=== PATIENT | female | born 1965 | race Caucasian/White ===

== ENCOUNTER 2017-02-09 10:36 | Inpatient (IN) | payer OTHER ==
[2017-02-09 11:49] VITALS: BMI 23.8
--- NOTE | 2017-02-09 13:43 | HP ---
CIWA Score - CIWA Score Nausea/Vomitin Muscle Tremors: 2 Anxiety: 4-Mod. Anxious/Guarded Agitation: 4-Moderately Restless Paroxysmal Sweats: 2 Orientation: 0-Oriented Tacttile Disturbances: 0-None Auditory Disturbances: 2-Mild Harshness/Frighten Visual Disturbances: 2-Mild Sensitivity Headache: 3-Moderate CIWA-Ar Total Score: 21 Admission ROS S - HPI Chief Complaint: "I want my life back. I am tired of being sick and suffering." Pt. is here to Detox from Alcohol. Allergies/Adverse Reactions: Allergies Allergy/AdvReac Type Severity Reaction Status Date / Time No Known Allergies Allergy Verified 02/09/17 12:04 History of Present Illness: Pt. is a 51 YO female here to Detox from Alcohol. Pt. had a previous Detox admission at [facility] in 2009. Pt. has had several other Detox admissions at other locations since that time; most recent: [facility]: 11/2016. Exam Limitations: No Limitations - Ebola screening Have you traveled outside of the country in the last 21 days: No Have you had contact with anyone from an Ebola affected area: No Have you been sick,other than usual withdrawal symptoms: No Do you have a fever: No - Review of Systems Constitutional: Chills, Diaphoresis, Fever, Loss of Appetite, Malaise, Night Sweats, Changes in sleep, Unintentional Wgt. Loss (Lost approx. 15 lbs. over last 3 months.) EENT: reports: Blurred Vision, Hearing Loss, Nose Congestion, Sinus Pressure, Throat Pain (Abnormal Growth in throat as per MD. Patient reprots that she is okay to consume a REGULAR Diet.) Respiratory: reports: SOB with Exertion, Productive cough Cardiac: reports: Palpitations GI: reports: Constipated, Nausea, Poor Appetite, Indigestion (Heartburn.) : reports: Other (MacrRecently diagnosed with UTI by [facility]; currently on antibiotic (Macrobid).) Musculoskeletal: reports: Back Pain, Muscle Pain, Neck Pain Integumentary: reports: No Symptoms Reported Neuro: reports: Headache, Tremors Endocrine: reports: No Symptoms Reported Hematology: reports: Easy Bruising Psychiatric: reports: Judgement Intact, Mood/Affect Appropiate, Orientated x3, Agitated, Anxious, Depressed (Took Paxil and Zoloft in past; no meds. currently. ) Other Systems: Reviewed and Negative Patient History - Patient Medical History Hx Anemia: No Hx Asthma: Yes (On meds.) Hx Chronic Obstructive Pulmonary Disease (COPD): Yes (Chronic Bronchitis; On meds.) Hx Cancer: No (Growth in throat; currently undergoing evaluation; uncertain if Cancer yet.) Hx Cardiac Disorders: No Hx Hypertension: No Hx Hypercholesterolemia: No Hx Pacemaker: No HX Cerebrovascular Accident: No Hx Seizures: No Hx Dementia: No Hx Diabetes: No Hx Gastrointestinal Disorders: Yes (Pt has GERD.) Hx Liver Disease: No Hx Genitourinary Disorders: Yes (UTI; currently receiving antibiotic.) Hx Sexually Transmitted Disorders: No Hx Renal Disease (ESRD): Yes (Stones/Infection in past.) Hx Thyroid Disease: No Hx Human Immunodeficiency Virus (HIV): No (Last Tested: 12/2016: NEGATIVE.) Hx Hepatitis C: Yes (Postive Antibody; Negative Viral Load when checked couple of years ago.) Hx Depression: Yes (Meds. in past, none currently.) Hx Suicide Attempt: No (PATIENT DENIES CURRENT SI / HI.) Hx Bipolar Disorder: Yes (Latuda in past; not currently.) Hx Schizophrenia: No Other Medical History: Tourette's Syndrome (Diagnosed during childhood). - Patient Surgical History Past Surgical History: Yes Hx Neurologic Surgery: No Hx Cataract Extraction: No Hx Cardiac Surgery: No Hx Lung Surgery: No Hx Breast Surgery: No Hx Breast Biopsy: No Hx Abdominal Surgery: No Hx Appendectomy: No Hx Cholecystectomy: No Hx Genitourinary Surgery: No Hx Section: Yes (x 2 (1990, 1998).) Hx Orthopedic Surgery: No Hx Hysterectomy: Yes (Partial hysterectomy in 1998.) Anesthesia Reaction: No - PPD History Previous Implant?: Yes Documented Results: Negative w/o proof Implanted On Prior [facility] Admission?: No PPD to be Administered?: Yes - Reproductive History Patient is a Female of Child Bearing Age (11 -55 yrs old): Yes LMP comment: LMP: 1998. Patient : No - Smoking Cessation Smoking history: Current every day smoker Have you smoked in the past 12 months: Yes Aproximately how many cigarettes per day: 3 Cigars Per Day: 0 Hx Chewing Tobacco Use: No Initiated information on smoking cessation: Yes 'Breaking Loose' booklet given: 02/09/17 (GIVEN ON UNIT.) - Substance & Tx. History Hx Alcohol Use: Yes Hx Substance Use: Yes Substance Use Type: Alcohol, Cocaine Hx Substance Use Treatment: Yes (Previous Detox admissions; Most recent: [facility], 11/17.) - Substances Abused Alcohol Route: Oral Frequency: Daily Amount used: 1 PINT VODKA Age of first use: 26 Date of Last Use: 02/08/17 Crack Route: Smoking Frequency: Daily Amount used: $100 Age of first use: 26 Date of Last Use: 02/07/17 Family Disease History - Family Disease History Family Disease History: Diabetes: Grandparent (Asthma, HTN), Father (Asthma, HTN ; .), Mother (Asthma, HTN; Psych Disorder.), Heart Disease: Grandparent , Father, Mother, Brother (Asthma; Aneurysm), CA: Son (Leukemia; ADHD.), Respiratory: Grandparent, Father, Mother, Brother, Other: Mother, Son, Daughter (ADHD.) Admission Physical Exam [facility] - Vital Signs Vital Signs: Vital Signs - 24 hr 02/09/17 11:45 Temperature 97.8 F Pulse Rate 62 Respiratory 18 Rate Blood Pressure 106/54 - Physical General Appearance: Yes: Nourished, Appropriately Dressed, Mild Distress, Tremorous, Irritable HEENTM: Yes: Hearing grossly Normal, Normocephalic, Normal Voice, ALISON, Pharynx Normal Respiratory: Yes: Chest Non-Tender, Lungs Clear, No Respiratory Distress, No Accessory Muscle Use Neck: Yes: No masses,lesions,Nodules, Supple, Trachea in good position Breast: Yes: Breast Exam Deferred Cardiology: Yes: Regular Rhythm, Regular Rate, S1, S2 Abdominal: Yes: Normal Bowel Sounds, Non Tender, Flat, Soft Genitourinary: Yes: Other (Currently on Antibiotic (Macrobid) for UTI.) Back: Yes: Decreased Range of Motion Musculoskeletal: Yes: Gait Steady, Back pain, Muscle Pain Extremities: Yes: Normal Range of Motion, Non-Tender, Tremors Neurological: Yes: Fully Oriented, Alert, Normal Mood/Affect, Normal Response Integumentary: Yes: Normal Color, Dry, Warm Lymphatic: Yes: Within Normal Limits - Diagnostic (1) Alcohol dependence with uncomplicated withdrawal Current Visit: Yes Status: Acute (2) Cocaine dependence, uncomplicated Current Visit: Yes Status: Acute (3) Nicotine dependence Current Visit: Yes Status: Chronic Qualifiers: Nicotine product type: cigarettes Substance use status: uncomplicated Qualified Code(s): F17.210 - Nicotine dependence, cigarettes, uncomplicated (4) History of 2 sections Current Visit: No Status: Resolved (5) Tourettes syndrome Current Visit: Yes Status: Chronic (6) UTI (urinary tract infection) Current Visit: Yes Status: Acute Qualifiers: Urinary tract infection type: site unspecified Hematuria presence: without hematuria Qualified Code(s): N39.0 - Urinary tract infection, site not specified (7) Asthma Current Visit: Yes Status: Chronic Qualifiers: Asthma severity: mild Asthma persistence: intermittent Asthma complication type: uncomplicated Qualified Code(s): J45.20 - Mild intermittent asthma, uncomplicated (8) COPD with chronic bronchitis Current Visit: Yes Status: Chronic (9) History of bipolar disorder Current Visit: Yes Status: Chronic (10) History of depression Current Visit: Yes Status: Chronic (11) GERD (gastroesophageal reflux disease) Current Visit: Yes Status: Chronic Qualifiers: Esophagitis presence: esophagitis presence not specified Qualified Code(s) : K21.9 - Gastro-esophageal reflux disease without esophagitis Cleared for Admission [facility] - Detox or Rehab S Level of Care: Medically Managed Detox Regimen/Protocol: Librium S Breath Alcohol Content Breath Alcohol Content: 0 Urine Pregancy Test - Result Urine Test Results: Negative- NO Line Present Urine Drug Screen - Results Drug Screen Negative: No Urine Drug Screen Results: CEDRIC-Cocaine
[2017-02-09] MEDS ORDERED: ACETAMINOPHEN 325 MG TABLET (FP) PO PRN (14:39)
[2017-02-09] MEDS ORDERED: LOPERAMIDE HCL 2 MG CAPSULE PO PRN (14:39)
[2017-02-09] MEDS ORDERED: MAGNESIUM CITRATE 300 ML BOTTLE PO PRN (14:39)
[2017-02-09] MEDS ORDERED: MAG HYDROX/AL HYDROX/SIMETH 30 ML UNIT-DOSE CUP PO PRN (14:39)
[2017-02-09] MEDS ORDERED: guaiFENesin/D-METHORPHAN HB 10 ML UNIT-DOSE CUPS PO PRN (14:39)
[2017-02-09] MEDS ORDERED: IBUPROFEN 400 MG TABLET (FP) PO PRN (14:39)
[2017-02-09] MEDS ORDERED: NICOTINE POLACRILEX 2 MG GUM BUC PRN (14:39)
[2017-02-09] MEDS ORDERED: chlordiazePOXIDE HCL 25 MG CAPSULE PO PRN (14:39)
[2017-02-09] MEDS ORDERED: P-EPHED 60MG/TRIPROLIDI 2.5MG TABLET PO PRN (14:39)
[2017-02-09] MEDS ORDERED: MAGNESIUM HYDROX 2400MG/30ML ORAL SUSPENSION 30 ML CUP PO PRN (14:39)
[2017-02-09] MEDS ORDERED: MENTHOL/PHENOL 1 EACH UD MM PRN (14:39)
[2017-02-09] MEDS ORDERED: hydrOXYzine PAMOATE 50 MG CAPSULE (FP) PO PRN (14:39)
[2017-02-09] MEDS ORDERED: chlordiazePOXIDE HCL 25 MG CAPSULE PO ONE (15:53)
[2017-02-09] MEDS ORDERED: MECLIZINE HCL 12.5 MG TABLET PO PRN (16:02)
[2017-02-09] MEDS: NICOTINE 14 MG/24 HOURS TOPICAL PATCH TD SCH (16:03)
[2017-02-09 16:43] LABS: MCH 31.5 pg (25.7-33.7); MCHC 33.3 g/dl (32.0-36.0); MEAN CELL VOLUME 94.5 fl (80-96); MEAN PLT VOLUME 9.6 fl (7.5-11.1); PLATELET COUNT 272 K/MM3 (134-434); RDW 13.6 % (11.6-15.6); WHITE BLOOD COUNT 5.4 K/mm3 (4.0-10.0)
[2017-02-09 16:59] LABS: ALBUMIN 3.4 g/dl (3.4-5.0); ANION GAP 9 (8-16); CALCIUM 8.6 mg/dL (8.5-10.1); CO2 27 mmol/L (21-32); GLUCOSE,RANDOM 79 mg/dL (74-106); SGOT/AST 11 U/L (15-37); SGPT/ALT 15 U/L (12-78)
[2017-02-09 17:01] LABS: ALK PHOS 88 U/L (45-117); BILIRUBIN,TOTAL 0.1 mg/dL (0.2-1.0); CREATININE 0.7 mg/dL (0.55-1.02); TOT PROT 6.3 g/dl (6.4-8.2)
[2017-02-09] MEDS: chlordiazePOXIDE HCL 25 MG CAPSULE PO SCH ×2 (17:33→22:56)
[2017-02-09] MEDS: PREDNISONE PO SCH (18:10)
[2017-02-09 22:10] LABS: URINE APPEARANCE SLCLOUDY; URINE BILIRUBIN NEGATIVE (NEGATIVE); URINE BLOOD NEGATIVE (NEGATIVE); URINE COLOR YELLOW; URINE GLUCOSE (UA) NEGATIVE (NEGATIVE); URINE KETONE NEGATIVE (NEGATIVE); URINE NITRITE NEGATIVE (NEGATIVE); URINE PROTEIN NEGATIVE (NEGATIVE); URINE UROBILINOGEN NEGATIVE mg/dL (0.2-1.0)
[2017-02-09] MEDS: PATIENT'S OWN MEDICATION (NON-FORMULARY) (Nitrofurantoin Monohyd/M-Cryst [Nitrofurantoin M PO SCH (22:56)
[2017-02-09] MEDS: THIAMINE HCL 100 MG TABLET (FP) PO SCH (22:56)
[2017-02-09] MEDS: MONTELUKAST NA 10 MG TABLET PO SCH (22:56)
[2017-02-10] MEDS: chlordiazePOXIDE HCL 25 MG CAPSULE PO SCH ×4 (05:27→22:30)
[2017-02-10] MEDS ORDERED: SODIUM PHOSPHATE/NA BIPHOS 133 ML ENEMA PR ONE (09:19)
[2017-02-10 10:30] LABS: HIV 1 & 2 AB NEGATIVE; HIV 1 AGp24 NEGATIVE
[2017-02-10 10:59] LABS: URINE LEUK ESTERASE Negative (NEGATIVE)
[2017-02-10] MEDS: PATIENT'S OWN MEDICATION (NON-FORMULARY) (Nitrofurantoin Monohyd/M-Cryst [Nitrofurantoin M PO SCH ×2 (11:01→22:30)
[2017-02-10] MEDS: NICOTINE 14 MG/24 HOURS TOPICAL PATCH TD SCH (11:01)
[2017-02-10] MEDS: PRENATAL VITAMINS W/ FOLIC ACID TABLET (FP) PO SCH (11:01)
[2017-02-10] MEDS: PREDNISONE PO SCH (11:01)
[2017-02-10] MEDS: PANTOPRAZOLE 40 MG TABLET (FP) PO SCH (11:01)
--- NOTE | 2017-02-10 11:05 | PN ---
S CIWA - CIWA Score Nausea/Vomitin-No Nausea/No Vomiting Muscle Tremors: 4-Moderate,w/Arms Extend Anxiety: 3 Agitation: 3 Paroxysmal Sweats: 3 Orientation: 0-Oriented Tacttile Disturbances: 0-None Auditory Disturbances: 0-None Visual Disturbances: 0-None Headache: 1-Very Mild CIWA-Ar Total Score: 14 [facility] Progress Note (SOAP) Subjective: constipation sweats shakes agitation anxiety body aches irritable Objective: 02/10/17 11:04 Vital Signs Temperature 97.1 F L 02/10/17 10:27 Pulse Rate 81 02/10/17 10:27 Respiratory Rate 18 02/10/17 10:27 Blood Pressure 99/59 02/10/17 10:27 O2 Sat by Pulse Oximetry (%) Laboratory Tests 02/09/17 02/09/17 02/09/17 13:05 15:00 15:00 WBC 5.4 RBC 4.07 Hgb 12.8 Hct 38.5 MCV 94.5 MCH 31.5 MCHC 33.3 RDW 13.6 Plt Count 272 MPV 9.6 Sodium 139 Potassium 4.5 Chloride 103 Carbon Dioxide 27 Anion Gap 9 BUN 14 Creatinine 0.7 Creat Clearance w eGFR > 60 Random Glucose 79 Calcium 8.6 Total Bilirubin 0.1 L AST 11 L ALT 15 Alkaline Phosphatase 88 Total Protein 6.3 L Albumin 3.4 Urine Color Urine Appearance Urine pH Ur Specific [place] Urine Protein Urine Glucose (UA) Urine Ketones Urine Blood Urine Nitrite Urine Bilirubin Urine Urobilinogen Ur Leukocyte Esterase HIV 1&2 Antibody Screen Negative HIV P24 Antigen Negative 02/09/17 21:50 WBC RBC Hgb Hct MCV MCH MCHC RDW Plt Count MPV Sodium Potassium Chloride Carbon Dioxide Anion Gap BUN Creatinine Creat Clearance w eGFR Random Glucose Calcium Total Bilirubin AST ALT Alkaline Phosphatase Total Protein Albumin Urine Color Yellow Urine Appearance Slcloudy Urine pH 6.0 Ur Specific [place] 1.013 Urine Protein Negative Urine Glucose (UA) Negative Urine Ketones Negative Urine Blood Negative Urine Nitrite Negative Urine Bilirubin Negative Urine Urobilinogen Negative Ur Leukocyte Esterase Negative HIV 1&2 Antibody Screen HIV P24 Antigen aaox3 ambulating no acute distress Assessment: 02/10/17 11:04 withdrawal sx Plan: fleets enema continue detox dulcox increase fluids
--- NOTE | 2017-02-10 12:00 | EKG ---
Test Reason : Blood Pressure : / mmHG Vent. Rate : 065 BPM Atrial Rate : 065 BPM P-R Int : 130 ms QRS Dur : 084 ms QT Int : 400 ms P-R-T Axes : 053 063 060 degrees QTc Int : 416 ms NORMAL SINUS RHYTHM NORMAL ECG NO PREVIOUS ECGS AVAILABLE Confirmed by MILEY CHENEY MD ([id number]) on 02/10/2017 12:00:00 PM Referred By: JULISSA ROGERS Confirmed By:MILEY CHENEY MD
[2017-02-10] MEDS: BISACODYL 5 MG TABLET.DR (FP) PO SCH (12:01)
--- NOTE | 2017-02-10 15:20 | CONSULT ---
[facility] Psychiatric Consult - Data Date of interview: 02/10/17 Admission source: [facility] Identifying data: Readmission to [facility] for this 51 y/o female seeking detox treatment on for alcohol and cocaine dependence.Patient is single,a mother of four,domiciled ([place] setting),unemployed and supported on SSI benefits. Substance Abuse History: Patient admits to active use of cocaine and alcohol as described in the following [facility] report. Smoking history: Current every day smoker. Have you smoked in the past 12 months: Yes. Aproximately how many cigarettes per day: 3. Cigars Per Day: 0. Hx Chewing Tobacco Use: No. Initiated information on smoking cessation: Yes. 'Breaking Loose' booklet given : 02/09/17 (GIVEN ON UNIT.). - Substance & Tx. History. Hx Alcohol Use: Yes. Hx Substance Use: Yes. Substance Use Type: Alcohol, Cocaine. Hx Substance Use Treatment: Yes (Previous Detox admissions; Most recent: [facility] .). - Substances Abused. Alcohol. Route: Oral. Frequency: Daily. Amount used: 1 PINT VODKA. Age of first use: 26. Date of Last Use: 02/08/17. Crack. Route: Smoking. Frequency: Daily. Amount used: $100. Age of first use: 26. Date of Last Use: 02/07/17 Medical History: COPD,bronchial asthma,GERD,hepatitis C,nephrolithiasis and history of partial hysterectomy (1998). Psychiatric History: No history of psychiatric hospitalizations (only CPEP visits at [facility])Diagnosed with Bipolar Disorder and Tourette's syndrome.Followed at [facility] in the [place].Patient reports past maintenance treatment with topiramate,zoloft,paxil,latuda and vistaril.Admits to non-adherence to medications.Ms Lang denies history of suicide attempts. Physical/Sexual Abuse/Trauma History: Patient denies. Additional Comment: Urine Drug Screen Results: CEDRIC-Cocaine.Noted. Mental Status Exam - Mental Status Exam Alert and Oriented to: Time, Place, Person Cognitive Function: Good Patient Appearance: Well Groomed (petite,thin habitus) Mood: Hopeful, Euthymic Affect: Appropriate, Normal Range Patient Behavior: Appropriate, Cooperative Speech Pattern: Clear, Appropriate Voice Loudness: Normal Thought Process: Intact, Goal Oriented Thought Disorder: Not Present Hallucinations: Denies Suicidal Ideation: Denies Homicidal Ideation: Denies Insight/Judgement: Poor Sleep: Poorly, Difficulty falling asleep (wants ambien) Appetite: Good Muscle strength/Tone: Normal Gait/Station: Normal Psychiatric Findings - Problem List ([place] 1, 2,3) (1) Alcohol dependence with uncomplicated withdrawal Current Visit: Yes Status: Acute (2) Cocaine dependence, uncomplicated Current Visit: Yes Status: Acute (3) Nicotine dependence Current Visit: Yes Status: Acute Qualifiers: Nicotine product type: cigarettes Substance use status: uncomplicated Qualified Code(s): F17.210 - Nicotine dependence, cigarettes, uncomplicated (4) Substance induced mood disorder Current Visit: Yes Status: Acute (5) History of bipolar disorder Current Visit: No Status: Chronic (6) Tourettes syndrome Current Visit: Yes Status: Chronic - Initial Treatment Plan Initial Treatment Plan: Psychoeducation.Sleep hygiene.Detoxification in progress.Discussed option of topiramate,latuda and other mood stabilizers : patient declined.Consents only to ambien (with the exception of detoxification protocol).Informed of potential risks attached to refusal of medications.Ambien 10 mg po hs prn.Made aware of risk of parasomnias.Observation.
[2017-02-10] MEDS: ZOLPIDEM TARTRATE 10 MG TABLET (PARK CARE ONLY) PO PRN (22:30)
[2017-02-10] MEDS: THIAMINE HCL 100 MG TABLET (FP) PO SCH (22:31)
[2017-02-10] MEDS: MONTELUKAST NA 10 MG TABLET PO SCH (22:31)
[2017-02-11] MEDS: chlordiazePOXIDE HCL 25 MG CAPSULE PO SCH ×2 (05:54→10:52)
[2017-02-11] MEDS: PRENATAL VITAMINS W/ FOLIC ACID TABLET (FP) PO SCH (10:50)
[2017-02-11] MEDS: BISACODYL 5 MG TABLET.DR (FP) PO SCH (10:50)
[2017-02-11] MEDS: PREDNISONE PO SCH (10:50)
[2017-02-11] MEDS: PATIENT'S OWN MEDICATION (NON-FORMULARY) (Nitrofurantoin Monohyd/M-Cryst [Nitrofurantoin M PO SCH ×2 (10:50→22:58)
[2017-02-11] MEDS: PANTOPRAZOLE 40 MG TABLET (FP) PO SCH (10:50)
[2017-02-11] MEDS: NICOTINE 14 MG/24 HOURS TOPICAL PATCH TD SCH (10:51)
--- NOTE | 2017-02-11 14:29 | PN ---
S CIWA - CIWA Score Nausea/Vomitin Muscle Tremors: 3 Anxiety: 3 Agitation: 3 Paroxysmal Sweats: 1-Minimal Palms Moist Orientation: 0-Oriented Tacttile Disturbances: 1-Very Mild Itch/Numbness Auditory Disturbances: 1-Very Mild Visual Disturbances: 0-None Headache: 2-Mild CIWA-Ar Total Score: 17 [facility] Progress Note (SOAP) Subjective: alert,irritable,anxious,interrupted sleep,tremor Objective: 02/11/17 14:28 Vital Signs Temperature 96.3 F L 02/11/17 11:22 Pulse Rate 76 02/11/17 11:22 Respiratory Rate 16 02/11/17 11:22 Blood Pressure 95/62 02/11/17 11:22 O2 Sat by Pulse Oximetry (%) 02/11/17 14:28 Laboratory Last Values WBC 5.4 K/mm3 (4.0-10.0) 02/09/17 15:00 RBC 4.07 M/mm3 (3.60-5.2) 02/09/17 15:00 Hgb 12.8 GM/dL (10.7-15.3) 02/09/17 15:00 Hct 38.5 % (32.4-45.2) 02/09/17 15:00 MCV 94.5 fl (80-96) 02/09/17 15:00 MCH 31.5 pg (25.7-33.7) 02/09/17 15:00 MCHC 33.3 g/dl (32.0-36.0) 02/09/17 15:00 RDW 13.6 % (11.6-15.6) 02/09/17 15:00 Plt Count 272 K/MM3 (134-434) 02/09/17 15:00 MPV 9.6 fl (7.5-11.1) 02/09/17 15:00 Sodium 139 mmol/L (136-145) 02/09/17 15:00 Potassium 4.5 mmol/L (3.5-5.1) 02/09/17 15:00 Chloride 103 mmol/L (98-107) 02/09/17 15:00 Carbon Dioxide 27 mmol/L (21-32) 02/09/17 15:00 Anion Gap 9 (8-16) 02/09/17 15:00 BUN 14 mg/dL (7-18) 02/09/17 15:00 Creatinine 0.7 mg/dL (0.55-1.02) 02/09/17 15:00 Creat Clearance w eGFR > 60 (>60) 02/09/17 15:00 Random Glucose 79 mg/dL (74-106) 02/09/17 15:00 Calcium 8.6 mg/dL (8.5-10.1) 02/09/17 15:00 Total Bilirubin 0.1 mg/dL (0.2-1.0) L 02/09/17 15:00 AST 11 U/L (15-37) L 02/09/17 15:00 ALT 15 U/L (12-78) 02/09/17 15:00 Alkaline Phosphatase 88 U/L (45-117) 02/09/17 15:00 Total Protein 6.3 g/dl (6.4-8.2) L 02/09/17 15:00 Albumin 3.4 g/dl (3.4-5.0) 02/09/17 15:00 Urine Color Yellow 02/09/17 21:50 Urine Appearance Slcloudy 02/09/17 21:50 Urine pH 6.0 (5.0-8.0) 02/09/17 21:50 Ur Specific [place] 1.013 (1.001-1.035) 02/09/17 21:50 Urine Protein Negative (NEGATIVE) 02/09/17 21:50 Urine Glucose (UA) Negative (NEGATIVE) 02/09/17 21:50 Urine Ketones Negative (NEGATIVE) 02/09/17 21:50 Urine Blood Negative (NEGATIVE) 02/09/17 21:50 Urine Nitrite Negative (NEGATIVE) 02/09/17 21:50 Urine Bilirubin Negative (NEGATIVE) 02/09/17 21:50 Urine Urobilinogen Negative mg/dL (0.2-1.0) 02/09/17 21:50 Ur Leukocyte Esterase Negative (NEGATIVE) 02/09/17 21:50 RPR Titer Reactive 1:1 (NONREACTIVE) H 02/09/17 15:00 T.pallidum Ab (MHA) Non reactive (NONREACTIVE) 02/09/17 15:00 HIV 1&2 Antibody Screen Negative 02/09/17 13:05 HIV P24 Antigen Negative 02/09/17 13:05 Assessment: 02/11/17 14:31 withdrawal symptom Plan: continue detox
[2017-02-11] MEDS: chlordiazePOXIDE 5 MG CAPSULE PO SCH ×2 (17:24→22:58)
[2017-02-11] MEDS: THIAMINE HCL 100 MG TABLET (FP) PO SCH (22:58)
[2017-02-11] MEDS: MONTELUKAST NA 10 MG TABLET PO SCH (22:58)
[2017-02-12] MEDS: chlordiazePOXIDE 5 MG CAPSULE PO SCH ×2 (05:54→10:36)
[2017-02-12] MEDS: PREDNISONE PO SCH (10:32)
[2017-02-12] MEDS: PATIENT'S OWN MEDICATION (NON-FORMULARY) (Nitrofurantoin Monohyd/M-Cryst [Nitrofurantoin M PO SCH ×2 (10:32→22:29)
[2017-02-12] MEDS: BISACODYL 5 MG TABLET.DR (FP) PO SCH (10:33)
[2017-02-12] MEDS: NICOTINE 14 MG/24 HOURS TOPICAL PATCH TD SCH (10:33)
[2017-02-12] MEDS: PANTOPRAZOLE 40 MG TABLET (FP) PO SCH (10:33)
[2017-02-12] MEDS: PRENATAL VITAMINS W/ FOLIC ACID TABLET (FP) PO SCH (10:33)
[2017-02-12] MEDS: ALBUTEROL SO4 18 GM HFA INHALER IH PRN ×2 (10:36→22:34)
--- NOTE | 2017-02-12 10:59 | PN ---
S Progress Note (SOAP) Subjective: alert,irritable,anxious,interrupted sleep Objective: 02/12/17 10:58 Vital Signs Temperature 96.4 F L 02/12/17 10:48 Pulse Rate 73 02/12/17 10:48 Respiratory Rate 18 02/12/17 10:48 Blood Pressure 102/50 02/12/17 10:48 O2 Sat by Pulse Oximetry (%) Assessment: 02/12/17 10:58 withdrawal symptom Plan: continue detox,discharge in am
--- NOTE | 2017-02-12 12:54 | PN ---
[facility] Progress Note Note: call to evaluate patient after a fall patient accidentally tripped,loss balance,injury to left foot and left ankle no head injury localized injury to left ankle and left foot swelling with pain in base of 5th metatarsal area and lateral malleolar area with tenderness impression contusion of right foot and right ankle r/o fracture treatment ice pack initiate fall protocol 2 motrin 400 mgs po now to [facility] for evaluation and treatment spoke with dr MOORE to be transported by [facility]
[2017-02-12] MEDS: chlordiazePOXIDE HCL 10 MG CAPSULE PO SCH ×2 (17:28→22:28)
[2017-02-12] MEDS: MONTELUKAST NA 10 MG TABLET PO SCH (22:29)
[2017-02-12] MEDS: THIAMINE HCL 100 MG TABLET (FP) PO SCH (22:29)
[2017-02-12] MEDS: ZOLPIDEM TARTRATE 10 MG TABLET (PARK CARE ONLY) PO PRN (22:31)
[2017-02-13] MEDS: chlordiazePOXIDE HCL 10 MG CAPSULE PO SCH ×2 (06:46→11:21)
--- NOTE | 2017-02-13 08:37 | DS ---
[facility] Detox Discharge Summary Admission Date: 02/09/17 Discharge Date: 02/13/17 - History Present History: Alcohol Dependence, Cocaine Dependence - Physical Exam Results Vital Signs: Vital Signs Temperature 97.5 F L 02/13/17 04:41 Pulse Rate 64 02/13/17 04:41 Respiratory Rate 16 02/13/17 04:41 Blood Pressure 106/58 02/13/17 04:41 O2 Sat by Pulse Oximetry (%) - Treatment Hospital Course: Detox Protocol Followed, Detoxed Safely, Responded well, Discharged Condition Good, Rehab Referral Accepted - Medication Discharge Medications: Ambulatory Orders Albuterol Sulfate [Proventil HFA Inhaler -] 2 inh PO QID PRN 02/09/17 Hydroxyzine Pamoate [Vistaril -] 50 mg PO HS 02/09/17 Ibuprofen [Motrin -] 600 mg PO TID PRN 02/09/17 Montelukast Na [Singulair -] 10 mg PO HS 02/09/17 Nitrofurantoin Monohyd/M-Cryst [Nitrofurantoin [place]-Mcr 100 mg] 100 mg PO BID Omeprazole 40 mg PO DAILY 02/09/17 Prednisone [Deltasone -] 20 mg PO UTDICT 02/09/17 - Diagnosis (1) Alcohol dependence with uncomplicated withdrawal Current Visit: Yes Status: Chronic (2) Cocaine dependence, uncomplicated Current Visit: Yes Status: Chronic (3) Asthma Current Visit: Yes Status: Chronic Qualifiers: Asthma severity: mild Asthma persistence: intermittent Asthma complication type: uncomplicated Qualified Code(s): J45.20 - Mild intermittent asthma, uncomplicated (4) Tourettes syndrome Current Visit: Yes Status: Chronic - AMA Did Patient Leave Against Medical Advice: No ([facility])
[2017-02-13] MEDS: PRENATAL VITAMINS W/ FOLIC ACID TABLET (FP) PO SCH (10:23)
[2017-02-13] MEDS: BISACODYL 5 MG TABLET.DR (FP) PO SCH (10:24)
[2017-02-13] MEDS: PANTOPRAZOLE 40 MG TABLET (FP) PO SCH (10:24)
[2017-02-13] MEDS: ALBUTEROL SO4 18 GM HFA INHALER IH PRN (10:26)
[2017-02-13] MEDS: NICOTINE 14 MG/24 HOURS TOPICAL PATCH TD SCH (10:55)
[2017-02-13] MEDS: PATIENT'S OWN MEDICATION (NON-FORMULARY) (Nitrofurantoin Monohyd/M-Cryst [Nitrofurantoin M PO SCH (10:56)
[2017-02-13] MEDS: PREDNISONE PO SCH (10:56)
[2017-02-13 13:59] VITALS: BP 108/69; PULSE 86; TEMP 97.1
== END 2017-02-13 15:40 | disposition home or self-care (01) | DRG 774 ==
LOC: YASAS 10:36 → Y6N 15:11
PROVIDERS: ADMIT Internal Medicine; ATTEND Internal Medicine
PROC: HZ2ZZZZ Detoxification Services for Substance Abuse Treatment (ICD-10-PCS; principal; 2017-02-09)
DX: F10.230 Alcohol dependence with withdrawal, uncomplicated (principal); F14.20 Cocaine dependence, uncomplicated; F17.210 Nicotine dependence, cigarettes, uncomplicated; F19.24 Other psychoactive substance dependence with psychoactive substance-induced mood disorder; F31.9 Bipolar disorder, unspecified; F95.2 Tourette's disorder; J45.20 Mild intermittent asthma, uncomplicated; J44.9 Chronic obstructive pulmonary disease, unspecified; K21.9 Gastro-esophageal reflux disease without esophagitis; N39.0 Urinary tract infection, site not specified; Z87.442 Personal history of urinary calculi; S90.02XA Contusion of left ankle, initial encounter; S90.32XA Contusion of left foot, initial encounter; W01.0XXA Fall on same level from slipping, tripping and stumbling without subsequent striking against object, initial encounter; Y93.89 Activity, other specified; Y92.230 Patient room in hospital as the place of occurrence of the external cause
CPT/HCPCS: 36415; 80053; 81003; 85027; 86593; 86780; 87389; 93005; 93010

== ENCOUNTER 2017-02-12 13:34 | Emergency (ER) | payer OTHER ==
[2017-02-12 13:41] VITALS: BP 109/67; PULSE 79; TEMP 97; BMI 23.0
--- NOTE | 2017-02-12 14:53 | PDOC ---
History of Present Illness - General Chief Complaint: Injury Stated Complaint: FOOT PAIN Time Seen by Provider: 02/12/17 14:12 History Source: Patient Exam Limitations: No Limitations - History of Present Illness Initial Comments: 02/12/17 15:59 Chief complaint: Fall, left foot pain/ankle pain History of present illness: Patient is a 51 year old female with a history of , COPD, Tourette's, asthma, hole and cocaine use sent from detox due to patient falling forward and twisting her left foot and ankle. Patient denies hitting her head or having any other discomfort. Patient points to her left dorsal foot medial aspect complaining of pain just under medial malleous. She denies any ankle pain. Patient reports having had ibuprofen prior to coming here today. Patient is ambulating with a slight limp. Patient denies any numbness of her foot or ankle or left leg. There is no gross deformity of left foot or ankle. Occurred: reports: just prior to arrival Severity: reports: moderate (left foot) Pain Location: reports: lower extremity (left foot/ankle ) Method of Injury: Yes: fall (twisting left foot/ankle) Modifying Factors: improves with: immobilization Loss of Consciousness: no loss of consciousness Associated Symptoms (Fall): trouble walking (slight limping ) Past History - Past Medical History Allergies/Adverse Reactions: Allergies Allergy/AdvReac Type Severity Reaction Status Date / Time No Known Allergies Allergy Verified 02/09/17 12:04 Home Medications: Ambulatory Orders Albuterol Sulfate [Proventil HFA Inhaler -] 2 inh PO QID PRN 02/09/17 Hydroxyzine Pamoate [Vistaril -] 50 mg PO HS 02/09/17 Ibuprofen [Motrin -] 600 mg PO TID PRN 02/09/17 Montelukast Na [Singulair -] 10 mg PO HS 02/09/17 Nitrofurantoin Monohyd/M-Cryst [Nitrofurantoin [place]-Mcr 100 mg] 100 mg PO BID Omeprazole 40 mg PO DAILY 02/09/17 Prednisone [Deltasone -] 20 mg PO UTDICT 02/09/17 Anemia: No Asthma: Yes (On meds.) Cancer: No (Growth in throat; currently undergoing evaluation; uncertain if Cancer yet.) Cardiac Disorders: No CVA: No COPD: Yes (Chronic Bronchitis; On meds.) DVT: No Dementia: No Diabetes: No GI Disorders: Yes (Pt has GERD.) Disorders: Yes (UTI; currently receiving antibiotic.) HTN: No Hypercholesterolemia: No Kidney Stones: Yes Liver Disease: No Seizures: No Thyroid Disease: No - Surgical History Abdominal Surgery: No Appendectomy: No Cardiac Surgery: No Cholecystectomy: No Lung Surgery: No Neurologic Surgery: No Orthopedic Surgery: No - Reproductive History PID: No - Suicide/Smoking/Psychosocial Hx Smoking History: Unknown if ever smoked Have you smoked in the past 12 months: Yes Number of Cigarettes Smoked Daily: 3 Cigars Per Day: 0 Information on smoking cessation initiated: No 'Breaking Loose' booklet given: 02/09/17 Hx Alcohol Use: No Drug/Substance Use Hx: No Substance Use Type: Alcohol, Cocaine Hx Substance Use Treatment: Yes (Previous Detox admissions; Most recent: [facility], 11/17.) Trauma Specific PMHX - Complaint Specific PMHX Arthritis: Yes (both hands) Review of Systems - Review of Systems Able to Perform ROS?: Yes Constitutional: No: Symptoms Reported Musculoskeletal: Yes: Joint Pain (left foot slightly below medial malleolus ). No: Joint Swelling Integumentary: No: Symptoms Reported Neurological: No: Symptoms reported *Physical Exam - Vital Signs Last Vital Signs Temp Pulse Resp BP Pulse Ox 97.0 F L 79 18 109/67 100 02/12/17 13:38 02/12/17 13:38 02/12/17 13:38 02/12/17 13:38 02/12/17 13:38 - Physical Exam General Appearance: Yes: Appropriately Dressed Neck: negative: Tender, Lymphadenopathy (R), Lymphadenopathy (L), Rigidity, Tender lateral, Tender midline Respiratory/Chest: positive: Lungs Clear, Normal Breath Sounds. negative: Chest Tender, Respiratory Distress Cardiovascular: positive: Regular Rhythm, Regular Rate, S1, S2 Vascular Pulses: Doralis-Pedis (L): 4+ Musculoskeletal: positive: Normal Inspection. negative: CVA Tenderness, CVA Tenderness (R), CVA Tenderness (L), Vertebral Tenderness Extremity: positive: Normal Capillary Refill, Normal Inspection (left foot/ankle ), Normal Range of Motion (left foot/toes and ankle), Tender (left foot slightly below medial malleolus ). negative: Swelling Integumentary: positive: Normal Color Neurologic: positive: Alert, Normal Response, Respond to painful stimul (left foot/ankle). negative: Numbness, Sensory Deficit Deep Tendon Reflexes: Ankle (L): 4+ (no induration ) Procedures - Consent Consent obtained: From Patient - Splinting Splint Location: Left: Foot, Ankle Pre-Proc Neuro Vasc Exam: normal Andrei Bandage: 3" Complications: No ED Treatment Course - RADIOLOGY Radiology Studies Ordered: Category Date Time Status ANKLE & FOOT-LEFT* [RAD] Stat Radiology 02/12/17 14:52 Ordered Medical Decision Making - Medical Decision Making 02/12/17 16:03 Patient is a 51 year old female with a history of , COPD, Tourette's, asthma, hole and cocaine use sent from detox due to patient falling forward and twisting her left foot and ankle. Patient denies hitting her head or having any other discomfort. Patient points to her left dorsal foot medial aspect complaining of pain just under medial malleous. She denies any ankle pain. Patient reports having had ibuprofen prior to coming here today. Patient is ambulating with a slight limp. Patient denies any numbness of her foot or ankle or left leg. There is no gross deformity of left foot or ankle. r/o fracture left foot/ankle foot/ankle sprain PLAN: xray ankle/foot negative for fracture andrei wrap left foot/ankle follow up with orthopedist if pain continues take ibuprofen as needed for pain 02/12/17 21:35 *DC/Admit/Observation/Transfer Diagnosis at time of Disposition: Sprain of ankle, left Qualifiers: Encounter type: initial encounter Involved ligament of ankle: unspecified ligament Qualified Code(s): S93.402A - Sprain of unspecified ligament of left ankle, initial encounter Sprain of foot, left Qualifiers: Encounter type: initial encounter Qualified Code(s): S93.602A - Unspecified sprain of left foot, initial encounter - Discharge Dispostion Disposition: HOME Condition at time of disposition: Stable - Referrals Referrals: David Navarro MD [Staff Physician] - - Patient Instructions Additional Instructions: Elevate your left foot as much as possible Apply ice to painful area on left foot and ankle area every hour for 10-15 minutes today and tomorrow while awake Follow up with orthopedist in the next 2 days if pain persist left foot and ankle area Wear Andrei wrap during the day take off at night to left foot and ankle area Continue to take ibuprofen as needed as directed by supervising nurse for pain And patient voiced understanding of discharge instructions and all questions were answered - Post Discharge Activity
== END 2017-02-12 16:13 | disposition other institution (70) ==
LOC: JERFT 13:34 → JER 13:34 → JERFT 16:13
DX: S93.402A Sprain of unspecified ligament of left ankle, initial encounter (principal); S93.602A Unspecified sprain of left foot, initial encounter; W18.39XA Other fall on same level, initial encounter; Y93.89 Activity, other specified; Y92.238 Other place in hospital as the place of occurrence of the external cause; J45.909 Unspecified asthma, uncomplicated; J42 Unspecified chronic bronchitis; K21.9 Gastro-esophageal reflux disease without esophagitis; Z87.440 Personal history of urinary (tract) infections; F10.20 Alcohol dependence, uncomplicated; F14.20 Cocaine dependence, uncomplicated; F17.210 Nicotine dependence, cigarettes, uncomplicated
CPT/HCPCS: 73610-TC-LT; 73630-TC-LT; 99281-25

== ENCOUNTER 2017-12-23 14:10 | Inpatient (IN) | payer OTHER ==
[2017-12-23 15:26] VITALS: BMI 23.8
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
[2017-12-23] MEDS ORDERED: MAGNESIUM CITRATE 300 ML BOTTLE PO PRN (17:16)
[2017-12-23] MEDS ORDERED: MENTHOL/PHENOL 1 EACH UD MM PRN (17:16)
[2017-12-23] MEDS ORDERED: chlordiazePOXIDE HCL 25 MG CAPSULE PO PRN (17:16)
[2017-12-23] MEDS ORDERED: guaiFENesin/D-METHORPHAN HB 10 ML UNIT-DOSE CUPS PO PRN (17:16)
[2017-12-23] MEDS ORDERED: ACETAMINOPHEN 325 MG TABLET (FP) PO PRN (17:16)
[2017-12-23] MEDS ORDERED: IBUPROFEN 400 MG TABLET (FP) PO PRN (17:16)
[2017-12-23] MEDS ORDERED: MAG HYDROX/AL HYDROX/SIMETH 30 ML UNIT-DOSE CUP PO PRN (17:16)
[2017-12-23] MEDS ORDERED: MAGNESIUM HYDROX 2400MG/30ML ORAL SUSPENSION 30 ML CUP PO PRN (17:16)
[2017-12-23] MEDS ORDERED: NICOTINE POLACRILEX 2 MG GUM BUC PRN (17:16)
[2017-12-23] MEDS ORDERED: LOPERAMIDE HCL 2 MG CAPSULE PO PRN (17:16)
[2017-12-23] MEDS ORDERED: P-EPHED 60MG/TRIPROLIDI 2.5MG TABLET PO PRN (17:16)
[2017-12-23] MEDS ORDERED: hydrOXYzine PAMOATE 50 MG CAPSULE (FP) PO PRN (17:16)
[2017-12-23] MEDS ORDERED: ALBUTEROL SO4 8 GM HFA INHALER IH PRN (17:28)
[2017-12-23] MEDS ORDERED: MONTELUKAST NA 10 MG TABLET PO SCH (22:00)
[2017-12-23] MEDS ORDERED: THIAMINE HCL 100 MG TABLET (FP) PO SCH (22:00)
[2017-12-23] MEDS ORDERED: MELATONIN 5 MG TABLETS PO PRN (22:00)
[2017-12-23 22:58] VITALS: BP 142/63; PULSE 70; TEMP 98.4
[2017-12-23] MEDS ORDERED: chlordiazePOXIDE HCL 25 MG CAPSULE PO SCH (23:00)
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
[2017-12-23 23:26] LABS: URINE APPEARANCE TURBID; URINE BILIRUBIN NEGATIVE (<2.0 mg/dL); URINE COLOR YELLOW; URINE GLUCOSE (UA) NEGATIVE (NEGATIVE); URINE KETONE NEGATIVE (NEGATIVE); URINE LEUK ESTERASE NEGATIVE (NEGATIVE); URINE NITRITE POSITIVE (NEGATIVE); URINE PROTEIN NEGATIVE (NEGATIVE); URINE UROBILINOGEN NEGATIVE mg/dL (0.2-1.0)
[2017-12-23 23:37] LABS: EPI CELLS RARE /HPF (FEW); URINE BACTERIA MANY /hpf (NONE SEEN); URINE MUCUS MODERATE
[2017-12-24] MEDS ORDERED: PRENATAL VITAMINS W/ FOLIC ACID TABLET (FP) PO SCH (10:00)
[2017-12-24] MEDS ORDERED: PANTOPRAZOLE 40 MG TABLET (FP) PO SCH (10:00)
[2017-12-24] MEDS ORDERED: FLU VACCINE QUAD 60 MCG/0.5 ML (MDV 18-19) IM ONE (12:00)
--- NOTE | 2017-12-24 17:09 | EKG ---
Test Reason : Blood Pressure : / mmHG Vent. Rate : 062 BPM Atrial Rate : 062 BPM P-R Int : 130 ms QRS Dur : 084 ms QT Int : 432 ms P-R-T Axes : 057 061 059 degrees QTc Int : 438 ms NORMAL SINUS RHYTHM NORMAL ECG WHEN COMPARED WITH ECG OF 09-FEB-2017 15:48, NO SIGNIFICANT CHANGE WAS FOUND Confirmed by MD Carreon Daniel ([id number]) on 12/24/2017 5:08:52 PM Referred By: Confirmed By:Matthew Carreon MD
[2017-12-24] MEDS ORDERED: chlordiazePOXIDE HCL 25 MG CAPSULE PO SCH (23:00)
[2017-12-25] MEDS ORDERED: chlordiazePOXIDE 5 MG CAPSULE PO SCH (23:00)
[2017-12-26] MEDS ORDERED: chlordiazePOXIDE HCL 10 MG CAPSULE PO SCH (23:00)
== END 2017-12-23 23:25 | disposition left against medical advice (07) | DRG 774 ==
LOC: YASAS 14:10 → Y6N 16:23
PROC: HZ2ZZZZ Detoxification Services for Substance Abuse Treatment (ICD-10-PCS; principal; 2017-12-23)
DX: F10.230 Alcohol dependence with withdrawal, uncomplicated (principal); F14.20 Cocaine dependence, uncomplicated; F17.210 Nicotine dependence, cigarettes, uncomplicated; F19.24 Other psychoactive substance dependence with psychoactive substance-induced mood disorder; F31.9 Bipolar disorder, unspecified; F95.2 Tourette's disorder; F41.9 Anxiety disorder, unspecified; F43.10 Post-traumatic stress disorder, unspecified; F32.9 Major depressive disorder, single episode, unspecified; J44.9 Chronic obstructive pulmonary disease, unspecified; J45.909 Unspecified asthma, uncomplicated; N39.0 Urinary tract infection, site not specified; E78.00 Pure hypercholesterolemia, unspecified; K21.9 Gastro-esophageal reflux disease without esophagitis; B18.2 Chronic viral hepatitis C
CPT/HCPCS: 81003; 81015; 93005; 93010

== ENCOUNTER 2018-01-09 15:42 | Inpatient (IN) | payer OTHER ==
[2018-01-09 19:28] VITALS: BMI 24.1
--- NOTE | 2018-01-09 21:19 | HP ---
Admission ROS [facility] Chief Complaint: Seeking admission to Rehab Allergies/Adverse Reactions: Allergies Allergy/AdvReac Type Severity Reaction Status Date / Time No Known Allergies Allergy Verified 01/09/18 22:27 History of Present Illness: 52 years old female is seeking admission to Rehab. She has been in previous Rehab at [facility] in 2016. She has medical history of COPD, Tourette 's syndrome, Vertigo, hypercholecsterolemia, GERD, depression and Anxiety . Patient denies suicide ideation at this time Exam Limitations: No Limitations - Ebola screening Have you traveled outside of the country in the last 21 days: No Have you had contact with anyone from an Ebola affected area: No Have you been sick,other than usual withdrawal symptoms: No Do you have a fever: No - Review of Systems Constitutional: No Symptoms Reported EENT: reports: No Symptoms Reported Respiratory: reports: No Symptoms reported Cardiac: reports: No Symptoms Reported GI: reports: No Symptoms Reported : reports: No Symptoms Reported Musculoskeletal: reports: No Symptoms Reported Integumentary: reports: No Symptoms Reported Neuro: reports: No Symptoms reported Endocrine: reports: No Symptoms Reported Hematology: reports: No Symptoms Reported Psychiatric: reports: No Sypmtoms Reported Other Systems: Reviewed and Negative Patient History - Patient Medical History Hx Anemia: No Hx Asthma: No Hx Chronic Obstructive Pulmonary Disease (COPD): Yes (Singular) Hx Cancer: No Hx Cardiac Disorders: No Hx Congestive Heart Failure: No Hx Hypertension: No Hx Hypercholesterolemia: Yes (Not on medication) Hx Pacemaker: No HX Cerebrovascular Accident: No Hx Seizures: No Hx Dementia: No Hx Diabetes: No Hx Gastrointestinal Disorders: Yes (Pt has GERD.) Hx Liver Disease: No Hx Genitourinary Disorders: No Hx Sexually Transmitted Disorders: No Hx Renal Disease (ESRD): No Hx Thyroid Disease: No Hx Human Immunodeficiency Virus (HIV): No (Last Tested: 12/2016: NEGATIVE.) Hx Hepatitis C: Yes (Postive Antibody; Negative Viral Load when checked couple of years ago.) Hx Depression: Yes (ON meds) Hx Suicide Attempt: No (Denies suicide attempt and suicidal ideation at this time) Hx Bipolar Disorder: Yes (Latuda in past; not currently.) Hx Schizophrenia: No Other Medical History: Anxiety- Not on medication - Patient Surgical History Past Surgical History: Yes Hx Neurologic Surgery: No Hx Cataract Extraction: No Hx Cardiac Surgery: No Hx Lung Surgery: No Hx Breast Surgery: No Hx Breast Biopsy: No Hx Abdominal Surgery: Yes (hysterectomy ) Hx Appendectomy: No Hx Cholecystectomy: No Hx Genitourinary Surgery: No Hx Section: Yes (2x 1998) Hx Orthopedic Surgery: No Hx Hysterectomy: Yes (Partial hysterectomy in 1998.) Other Surgical History: Partial hysterectomy in 1998 Anesthesia Reaction: No - PPD History Previous Implant?: Yes Documented Results: Negative w/proof Date: 02/11/17 PPD to be Administered?: No - Reproductive History Patient is a Female of Child Bearing Age (11 -55 yrs old): Yes LMP comment: S/P Hysterectomy 1998 Patient : No - Smoking Cessation Smoking history: Current every day smoker Have you smoked in the past 12 months: Yes Aproximately how many cigarettes per day: 3 Cigars Per Day: 0 Hx Chewing Tobacco Use: No Initiated information on smoking cessation: No 'Breaking Loose' booklet given: 01/09/18 - Substance & Tx. History Hx Alcohol Use: Yes Hx Substance Use: Yes - Substances Abused Crack Route: Smoking Frequency: Daily Amount used: $100 Age of first use: 26 Date of Last Use: 01/06/18 Alcohol Route: Oral Frequency: Daily Amount used: 1 pint vodka Age of first use: 22 Date of Last Use: 01/06/18 Family Disease History - Family Disease History Family Disease History: Diabetes: Grandparent (Asthma, HTN), Father (Asthma, HTN ; .), Mother (Asthma, HTN; Psych Disorder.), Heart Disease: Grandparent , Father, Mother, Brother (Asthma; Aneurysm), CA: Son (Leukemia; ADHD.), Respiratory: Grandparent, Father, Mother, Brother, Other: Mother, Son, Daughter (ADHD.) Admission Physical Exam [facility] - Vital Signs Vital Signs: Vital Signs - 24 hr 01/09/18 19:25 Temperature 99.1 F Pulse Rate 76 Respiratory 18 Rate Blood Pressure 105/57 L - Physical General Appearance: Yes: Within Normal Limits, Appropriately Dressed HEENTM: Yes: Normal ENT Inspection Respiratory: Yes: Lungs Clear, Normal Breath Sounds, No Respiratory Distress Neck: Yes: Supple Breast: Yes: Breast Exam Deferred Cardiology: Yes: Regular Rhythm, Regular Rate Abdominal: Yes: Normal Bowel Sounds, Soft Genitourinary: Yes: Within Normal Limits Back: Yes: Normal Inspection Musculoskeletal: Yes: Joint Stiffness Extremities: Yes: Normal Capillary Refill Neurological: Yes: economic consultant II-XII NML intact, Alert, Normal Mood/Affect Integumentary: Yes: Warm Lymphatic: Yes: Within Normal Limits - Diagnostic (1) Alcohol dependence during childbirth Current Visit: Yes Status: Suspected (2) Alcohol dependence Current Visit: Yes Status: Chronic Qualifiers: Complication of substance-induced condition: uncomplicated (3) COPD with chronic bronchitis Current Visit: No Status: Chronic (4) GERD (gastroesophageal reflux disease) Current Visit: Yes Status: Chronic Qualifiers: Esophagitis presence: esophagitis presence not specified Qualified Code(s) : K21.9 - Gastro-esophageal reflux disease without esophagitis (5) History of bipolar disorder Current Visit: Yes Status: Chronic (6) History of depression Current Visit: Yes Status: Chronic (7) Tourettes syndrome Current Visit: Yes Status: Chronic Cleared for Admission [facility] - Detox or Rehab [facility] Level of Care: Observation Bed Claeared for Rehab Admission: Yes [facility] Breath Alcohol Content Breath Alcohol Content: 0 Urine Pregancy Test - Result Urine Test Results: Negative- NO Line Present Urine Drug Screen - Results Drug Screen Negative: No Urine Drug Screen Results: CEDRIC-Cocaine, BZO-Benzodiazepines Inpatient Rehab Admission - Initial Determination Are CD services needed?: Yes Free of communicable disease: Yes Not in need of hospitalization: Yes - Rehab Admission Criteria Previous failed treatment: Yes Poor recovery environment: Yes Comorbidities: Yes Lacks judgement: No Patient is meeting Inpatient Rehab admission criteria:: Yes
[2018-01-09] MEDS ORDERED: ACETAMINOPHEN 325 MG TABLET (FP) PO PRN (21:32)
[2018-01-09] MEDS ORDERED: LOPERAMIDE HCL 2 MG CAPSULE PO PRN (21:32)
[2018-01-09] MEDS ORDERED: MAG HYDROX/AL HYDROX/SIMETH 30 ML UNIT-DOSE CUP PO PRN (21:32)
[2018-01-09] MEDS ORDERED: P-EPHED 60MG/TRIPROLIDI 2.5MG TABLET PO PRN (21:32)
[2018-01-09] MEDS ORDERED: MENTHOL/PHENOL 1 EACH UD MM PRN (21:32)
[2018-01-09] MEDS ORDERED: guaiFENesin/D-METHORPHAN HB 10 ML UNIT-DOSE CUPS PO PRN (21:32)
[2018-01-09] MEDS ORDERED: MAGNESIUM CITRATE 300 ML BOTTLE PO PRN (21:32)
[2018-01-09] MEDS ORDERED: MECLIZINE HCL 12.5 MG TABLET PO PRN (21:33)
[2018-01-09] MEDS ORDERED: ALBUTEROL SO4 8 GM HFA INHALER IH PRN (21:33)
[2018-01-09] MEDS ORDERED: MELATONIN 5 MG TABLETS PO PRN (22:00)
[2018-01-10] MEDS: THIAMINE HCL 100 MG TABLET (FP) PO SCH ×2 (00:56→21:42)
[2018-01-10] MEDS: MONTELUKAST NA 10 MG TABLET PO SCH ×2 (00:56→21:42)
[2018-01-10] MEDS ORDERED: PT OWN MED DRAWER 7, Y5N ONE (08:50)
--- NOTE | 2018-01-10 09:52 | EKG ---
Test Reason : Blood Pressure : / mmHG Vent. Rate : 068 BPM Atrial Rate : 068 BPM P-R Int : 140 ms QRS Dur : 082 ms QT Int : 400 ms P-R-T Axes : 063 059 055 degrees QTc Int : 425 ms NORMAL SINUS RHYTHM NORMAL ECG WHEN COMPARED WITH ECG OF 23-DEC-2017 18:27, NO SIGNIFICANT CHANGE WAS FOUND Confirmed by RENATE RADER MD ([id number]) on 01/10/2018 9:52:12 AM Referred By: Confirmed By:RENATE RADER MD
[2018-01-10 09:56] LABS: URINE APPEARANCE CLEAR; URINE BILIRUBIN NEGATIVE (<2.0 mg/dL); URINE COLOR STRAW; URINE GLUCOSE (UA) NEGATIVE (NEGATIVE); URINE KETONE NEGATIVE (NEGATIVE); URINE LEUK ESTERASE NEGATIVE (NEGATIVE); URINE NITRITE NEGATIVE (NEGATIVE); URINE PROTEIN NEGATIVE (NEGATIVE); URINE UROBILINOGEN NEGATIVE mg/dL (0.2-1.0)
[2018-01-10] MEDS: PRENATAL VITAMINS W/ FOLIC ACID TABLET (FP) PO SCH (09:57)
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
[2018-01-10] MEDS: ARIPiprazole 2 MG TABLET PO SCH (11:36)
[2018-01-10] MEDS ORDERED: PNEUMOCOCCAL 23 VACCINE 0.5 ML VIAL IM ONE (12:00)
[2018-01-10] MEDS ORDERED: PNEUMOC 13-VAL CONJ-DIP CRM/PF 0.5 ML DISP.SYRIN IM ONE (12:00)
[2018-01-10] MEDS: SERTRALINE HCL 50 MG TABLET (FP) PO SCH (14:28)
[2018-01-10 14:45] LABS: HEMATOCRIT 35.7 % (32.4-45.2); HEMOGLOBIN 11.8 GM/dL (10.7-15.3); MCH 30.7 pg (25.7-33.7); MCHC 32.9 g/dl (32.0-36.0); MEAN CELL VOLUME 93.1 fl (80-96); PLATELET COUNT 308 K/MM3 (134-434); RBC 3.83 M/mm3 (3.60-5.2); RDW 14.2 % (11.6-15.6); WHITE BLOOD COUNT 4.5 K/mm3 (4.0-10.0)
[2018-01-10 14:59] LABS: ALK PHOS 87 U/L (45-117); ANION GAP 4 MMOL/L (8-16); BILIRUBIN,TOTAL 0.1 mg/dL (0.2-1); BLOOD UREA NITROGEN 15 mg/dL (7-18); CALCIUM 8.6 mg/dL (8.5-10.1); CHLORIDE 108 mmol/L (98-107); CO2 28 mmol/L (21-32); CREATININE 0.6 mg/dL (0.55-1.3); GLUCOSE,RANDOM 86 mg/dL (74-106); POTASSIUM 4.8 mmol/L (3.5-5.1); SGOT/AST 15 U/L (15-37); SGPT/ALT 15 U/L (13-61); SODIUM 140 mmol/L (136-145)
[2018-01-10] MEDS: diphenhydrAMINE HCL 25 MG CAPSULE (FP) PO SCH (21:42)
[2018-01-10] MEDS: BENZTROPINE MESYLATE 1 MG TABLET (FP) PO SCH (21:43)
[2018-01-11] MEDS: PRENATAL VITAMINS W/ FOLIC ACID TABLET (FP) PO SCH (09:54)
[2018-01-11] MEDS: ARIPiprazole 2 MG TABLET PO SCH (09:55)
[2018-01-11] MEDS: SERTRALINE HCL 50 MG TABLET (FP) PO SCH (09:55)
[2018-01-11] MEDS: BENZTROPINE MESYLATE 1 MG TABLET (FP) PO SCH ×2 (09:55→21:08)
[2018-01-11] MEDS: THIAMINE HCL 100 MG TABLET (FP) PO SCH (21:08)
[2018-01-11] MEDS: MONTELUKAST NA 10 MG TABLET PO SCH (21:08)
[2018-01-11] MEDS: diphenhydrAMINE HCL 25 MG CAPSULE (FP) PO SCH (21:08)
[2018-01-11] MEDS: IBUPROFEN 400 MG TABLET (FP) PO PRN (21:55)
[2018-01-12 01:05] LABS: URINE APPEARANCE SLCLOUDY; URINE BILIRUBIN NEGATIVE (<2.0 mg/dL); URINE COLOR YELLOW; URINE GLUCOSE (UA) NEGATIVE (NEGATIVE); URINE KETONE NEGATIVE (NEGATIVE); URINE LEUK ESTERASE TRACE (NEGATIVE); URINE NITRITE NEGATIVE (NEGATIVE); URINE PROTEIN NEGATIVE (NEGATIVE); URINE UROBILINOGEN NEGATIVE mg/dL (0.2-1.0)
[2018-01-12 01:34] LABS: EPI CELLS MODERATE /HPF (FEW); URINE BACTERIA RARE /hpf (NONE SEEN); URINE MUCUS FEW
[2018-01-12] MEDS: IBUPROFEN 400 MG TABLET (FP) PO PRN (08:36)
[2018-01-12] MEDS: SERTRALINE HCL 50 MG TABLET (FP) PO SCH (09:55)
[2018-01-12] MEDS: ARIPiprazole 2 MG TABLET PO SCH (09:55)
[2018-01-12] MEDS: BENZTROPINE MESYLATE 1 MG TABLET (FP) PO SCH ×2 (09:55→21:26)
[2018-01-12] MEDS: PRENATAL VITAMINS W/ FOLIC ACID TABLET (FP) PO SCH (09:55)
[2018-01-12] MEDS ORDERED: CIPROFLOXACIN 500 MG PO ONE (10:37)
--- NOTE | 2018-01-12 10:44 | PN ---
[facility] Progress Note Note: PT C/O FLANK PAIN AND REPORTS HX OF KIDNEY STONES WITH UTI. PT WAS ON CIPRO 500 MG PO Q12H BUT DID NOT FINSH TREATMENT. HAS 7 DAYS MORE TO COMPLETE TX. Vital Signs 01/12/18 01/12/18 03:30 06:54 Temperature 97.7 F Pulse Rate 63 Respiratory 16 18 Rate Blood Pressure 107/72 Laboratory Tests 01/10/18 01/10/18 01/10/18 08:30 09:50 09:50 WBC 4.5 RBC 3.83 Hgb 11.8 Hct 35.7 MCV 93.1 MCH 30.7 MCHC 32.9 RDW 14.2 Plt Count 308 MPV 9.0 Sodium 140 Potassium 4.8 Chloride 108 H Carbon Dioxide 28 Anion Gap 4 L BUN 15 Creatinine 0.6 Creat Clearance w eGFR > 60 Random Glucose 86 Calcium 8.6 Total Bilirubin 0.1 L AST 15 ALT 15 Alkaline Phosphatase 87 Total Protein 6.0 L Albumin 3.0 L Urine Color Straw Urine Appearance Clear Urine pH 5.0 Ur Specific [place] 1.016 Urine Protein Negative Urine Glucose (UA) Negative Urine Ketones Negative Urine Blood Negative Urine Nitrite Negative Urine Bilirubin Negative Urine Urobilinogen Negative Ur Leukocyte Esterase Negative Urine WBC (Auto) Urine RBC (Auto) Ur Epithelial Cells Urine Bacteria Urine Mucus RPR Titer 01/10/18 01/12/18 09:50 00:30 WBC RBC Hgb Hct MCV MCH MCHC RDW Plt Count MPV Sodium Potassium Chloride Carbon Dioxide Anion Gap BUN Creatinine Creat Clearance w eGFR Random Glucose Calcium Total Bilirubin AST ALT Alkaline Phosphatase Total Protein Albumin Urine Color Yellow Urine Appearance Slcloudy Urine pH 6.0 Ur Specific [place] 1.021 Urine Protein Negative Urine Glucose (UA) Negative Urine Ketones Negative Urine Blood Negative Urine Nitrite Negative Urine Bilirubin Negative Urine Urobilinogen Negative Ur Leukocyte Esterase Trace Urine WBC (Auto) 22 Urine RBC (Auto) 1 Ur Epithelial Cells Moderate Urine Bacteria Rare Urine Mucus Few RPR Titer Nonreactive D LABS NOTED. PLAN:RESTART CIPRO TO FINISH. INCREASE FLUID INTAKE GINGERALE WITH MEALS PER PT REQUEST.
[2018-01-12] MEDS ORDERED: PATIENT'S OWN MEDICATION (NON-FORMULARY) (Ciprofloxacin [Cipro -] 500 MG) PO SCH ×2 (10:45→18:00)
[2018-01-12] MEDS: PANTOPRAZOLE 40 MG TABLET (FP) PO SCH (11:20)
[2018-01-12] MEDS ORDERED: PT OWN MED DRAWER 7, Y5N ONE (18:41)
[2018-01-12] MEDS: PATIENT'S OWN MEDICATION (NON-FORMULARY) (Ciprofloxacin [Cipro -] 500 MG) PO SCH (18:43)
[2018-01-12] MEDS: THIAMINE HCL 100 MG TABLET (FP) PO SCH (21:26)
[2018-01-12] MEDS: diphenhydrAMINE HCL 25 MG CAPSULE (FP) PO SCH (21:26)
[2018-01-12] MEDS: MONTELUKAST NA 10 MG TABLET PO SCH (21:26)
[2018-01-13] MEDS ORDERED: PT OWN MED DRAWER 7, Y5N ONE ×3 (05:59→17:07)
[2018-01-13] MEDS: PATIENT'S OWN MEDICATION (NON-FORMULARY) (Ciprofloxacin [Cipro -] 500 MG) PO SCH ×2 (07:04→19:02)
[2018-01-13] MEDS: ARIPiprazole 2 MG TABLET PO SCH (09:58)
[2018-01-13] MEDS: SERTRALINE HCL 50 MG TABLET (FP) PO SCH (09:58)
[2018-01-13] MEDS: BENZTROPINE MESYLATE 1 MG TABLET (FP) PO SCH ×2 (09:58→21:13)
[2018-01-13] MEDS: PANTOPRAZOLE 40 MG TABLET (FP) PO SCH (09:58)
[2018-01-13] MEDS: PRENATAL VITAMINS W/ FOLIC ACID TABLET (FP) PO SCH (09:58)
[2018-01-13] MEDS: MONTELUKAST NA 10 MG TABLET PO SCH (21:13)
[2018-01-13] MEDS: diphenhydrAMINE HCL 25 MG CAPSULE (FP) PO SCH (21:13)
[2018-01-13] MEDS: MAGNESIUM HYDROX 2400MG/30ML ORAL SUSPENSION 30 ML CUP PO PRN (21:13)
[2018-01-13] MEDS: THIAMINE HCL 100 MG TABLET (FP) PO SCH (21:13)
[2018-01-14] MEDS: PATIENT'S OWN MEDICATION (NON-FORMULARY) (Ciprofloxacin [Cipro -] 500 MG) PO SCH ×2 (06:40→16:59)
[2018-01-14] MEDS ORDERED: PT OWN MED DRAWER 7, Y5N ONE (06:49)
[2018-01-14] MEDS: BENZTROPINE MESYLATE 1 MG TABLET (FP) PO SCH ×2 (09:34→21:19)
[2018-01-14] MEDS: PANTOPRAZOLE 40 MG TABLET (FP) PO SCH (09:35)
[2018-01-14] MEDS: ARIPiprazole 2 MG TABLET PO SCH (09:35)
[2018-01-14] MEDS: SERTRALINE HCL 50 MG TABLET (FP) PO SCH (09:35)
[2018-01-14] MEDS: PRENATAL VITAMINS W/ FOLIC ACID TABLET (FP) PO SCH (09:35)
[2018-01-14] MEDS: MAGNESIUM HYDROX 2400MG/30ML ORAL SUSPENSION 30 ML CUP PO PRN (13:52)
[2018-01-14] MEDS ORDERED: hydrOXYzine PAMOATE 50 MG CAPSULE (FP) PO PRN (15:06)
--- NOTE | 2018-01-14 15:09 | PN ---
[facility] Progress Note Note: Psychiatrist deckhand sponge boat notes: As per nursing report patient asking medications for anxiety Vistaril 50mg po prn q4 for anxiety and agitation ordered
[2018-01-14] MEDS: hydrOXYzine PAMOATE 50 MG CAPSULE (FP) PO PRN (15:47)
[2018-01-14] MEDS: diphenhydrAMINE HCL 25 MG CAPSULE (FP) PO SCH (21:18)
[2018-01-14] MEDS: THIAMINE HCL 100 MG TABLET (FP) PO SCH (21:19)
[2018-01-14] MEDS: MONTELUKAST NA 10 MG TABLET PO SCH (21:19)
[2018-01-15] MEDS: PATIENT'S OWN MEDICATION (NON-FORMULARY) (Ciprofloxacin [Cipro -] 500 MG) PO SCH ×2 (06:33→17:28)
[2018-01-15] MEDS: ARIPiprazole 2 MG TABLET PO SCH (09:29)
[2018-01-15] MEDS: BENZTROPINE MESYLATE 1 MG TABLET (FP) PO SCH ×2 (09:30→21:14)
[2018-01-15] MEDS: SERTRALINE HCL 50 MG TABLET (FP) PO SCH (09:30)
[2018-01-15] MEDS: PANTOPRAZOLE 40 MG TABLET (FP) PO SCH (09:30)
[2018-01-15] MEDS: PRENATAL VITAMINS W/ FOLIC ACID TABLET (FP) PO SCH (09:30)
--- NOTE | 2018-01-15 15:56 | PN ---
[facility] Progress Note Note: NURSE MARITA CALLED TO REPORT PT WITH CHEST DISCOMFORT. SAW PT WHO NOW SAID AFTER TAKING MYLANTA AND DRINKING SOME FLUIDS SHE "BURPED AND THE GAS CAME OUT" . PT IS ALERT O X 3. NAD. HAS BEEN IN GROUPS ALL MORNING AND AFTERNOON. Vital Signs - 24 hr 01/15/18 01/15/18 01/15/18 00:30 03:30 07:23 Temperature 98.1 F Pulse Rate 61 Respiratory 18 20 18 Rate Blood Pressure 95/63 O2 Sat by Pulse Oximetry (%) 01/15/18 11:50 Temperature 98.1 F Pulse Rate 80 Respiratory 19 Rate Blood Pressure 97/64 O2 Sat by Pulse 99 Oximetry (%) Laboratory Tests 01/10/18 01/10/18 01/10/18 08:30 09:50 09:50 WBC 4.5 RBC 3.83 Hgb 11.8 Hct 35.7 MCV 93.1 MCH 30.7 MCHC 32.9 RDW 14.2 Plt Count 308 MPV 9.0 Sodium 140 Potassium 4.8 Chloride 108 H Carbon Dioxide 28 Anion Gap 4 L BUN 15 Creatinine 0.6 Creat Clearance w eGFR > 60 Random Glucose 86 Calcium 8.6 Total Bilirubin 0.1 L AST 15 ALT 15 Alkaline Phosphatase 87 Total Protein 6.0 L Albumin 3.0 L Urine Color Straw Urine Appearance Clear Urine pH 5.0 Ur Specific [place] 1.016 Urine Protein Negative Urine Glucose (UA) Negative Urine Ketones Negative Urine Blood Negative Urine Nitrite Negative Urine Bilirubin Negative Urine Urobilinogen Negative Ur Leukocyte Esterase Negative Urine WBC (Auto) Urine RBC (Auto) Ur Epithelial Cells Urine Bacteria Urine Mucus RPR Titer 01/10/18 01/12/18 09:50 00:30 WBC RBC Hgb Hct MCV MCH MCHC RDW Plt Count MPV Sodium Potassium Chloride Carbon Dioxide Anion Gap BUN Creatinine Creat Clearance w eGFR Random Glucose Calcium Total Bilirubin AST ALT Alkaline Phosphatase Total Protein Albumin Urine Color Yellow Urine Appearance Slcloudy Urine pH 6.0 Ur Specific [place] 1.021 Urine Protein Negative Urine Glucose (UA) Negative Urine Ketones Negative Urine Blood Negative Urine Nitrite Negative Urine Bilirubin Negative Urine Urobilinogen Negative Ur Leukocyte Esterase Trace Urine WBC (Auto) 22 Urine RBC (Auto) 1 Ur Epithelial Cells Moderate Urine Bacteria Rare Urine Mucus Few RPR Titer Nonreactive D PLAN:INCREASE PO FLUIDS.
[2018-01-15] MEDS ORDERED: PT OWN MED DRAWER 7, Y5N ONE (17:27)
[2018-01-15] MEDS: THIAMINE HCL 100 MG TABLET (FP) PO SCH (21:14)
[2018-01-15] MEDS: hydrOXYzine PAMOATE 50 MG CAPSULE (FP) PO PRN (21:14)
[2018-01-15] MEDS: MONTELUKAST NA 10 MG TABLET PO SCH (21:14)
[2018-01-15] MEDS: diphenhydrAMINE HCL 25 MG CAPSULE (FP) PO SCH (21:14)
[2018-01-16] MEDS ORDERED: PT OWN MED DRAWER 7, Y5N ONE ×2 (03:36→17:26)
[2018-01-16] MEDS: PATIENT'S OWN MEDICATION (NON-FORMULARY) (Ciprofloxacin [Cipro -] 500 MG) PO SCH ×2 (06:25→18:05)
[2018-01-16] MEDS: ARIPiprazole 2 MG TABLET PO SCH (09:23)
[2018-01-16] MEDS: PRENATAL VITAMINS W/ FOLIC ACID TABLET (FP) PO SCH (09:23)
[2018-01-16] MEDS: BENZTROPINE MESYLATE 1 MG TABLET (FP) PO SCH ×2 (09:23→21:11)
[2018-01-16] MEDS: PANTOPRAZOLE 40 MG TABLET (FP) PO SCH (09:24)
[2018-01-16] MEDS: SERTRALINE HCL 50 MG TABLET (FP) PO SCH (09:24)
[2018-01-16] MEDS: NICOTINE POLACRILEX 2 MG GUM BUC PRN ×2 (10:57→18:06)
[2018-01-16] MEDS: hydrOXYzine PAMOATE 50 MG CAPSULE (FP) PO PRN (15:56)
[2018-01-16] MEDS: diphenhydrAMINE HCL 25 MG CAPSULE (FP) PO SCH (21:11)
[2018-01-16] MEDS: MONTELUKAST NA 10 MG TABLET PO SCH (21:11)
[2018-01-16] MEDS: THIAMINE HCL 100 MG TABLET (FP) PO SCH (21:11)
[2018-01-17] MEDS: PATIENT'S OWN MEDICATION (NON-FORMULARY) (Ciprofloxacin [Cipro -] 500 MG) PO SCH (06:50)
[2018-01-17 07:07] VITALS: BP 99/64; PULSE 71; TEMP 98
[2018-01-17] MEDS: PRENATAL VITAMINS W/ FOLIC ACID TABLET (FP) PO SCH (09:12)
[2018-01-17] MEDS: ARIPiprazole 2 MG TABLET PO SCH (09:12)
[2018-01-17] MEDS: PANTOPRAZOLE 40 MG TABLET (FP) PO SCH (09:12)
[2018-01-17] MEDS: SERTRALINE HCL 50 MG TABLET (FP) PO SCH (09:12)
[2018-01-17] MEDS: BENZTROPINE MESYLATE 1 MG TABLET (FP) PO SCH (09:12)
[2018-01-17] MEDS ORDERED: SERTRALINE HCL 50 MG TABLET (FP) PO SCH (09:37)
[2018-01-17] MEDS ORDERED: PT OWN MED DRAWER 7, Y5N ONE ×2 (09:41→15:38)
[2018-01-17] MEDS: NICOTINE POLACRILEX 2 MG GUM BUC PRN (09:45)
--- NOTE | 2018-01-17 09:49 | PN ---
Psychiatric Progress Note Vital Signs: Vital Signs Period Temp Pulse Resp BP Sys/Peres Pulse Ox Last 24 Hr 98.0 F 71 16-16 99/64 Date of Session: 01/17/18 Chief Complaint:: Jensen depressed,having low energy,thinking a lot." HPI: Patient addressed Alcohol,Cocaine dependence comorbid with PTSD,Bipolar disorder. ROS: COPD,Tourette's syndrome,GERD. Current Medications: Active Medications Generic Name Dose Route Start Last Admin Trade Name Freq PRN Reason Stop Dose Admin Acetaminophen 650 mg 01/09/18 21:32 01/11/18 21:09 Tylenol - PO 650 mg Q4H PRN Administration FEVER Al Hydroxide/Mg Hydroxide 30 ml 01/09/18 21:32 01/15/18 12:00 Mylanta Oral Suspension - PO 30 ml Q6H PRN Administration DYSPEPSIA Albuterol Sulfate 2 puff 01/09/18 21:33 Ventolin Hfa Inhaler - IH QID PRN ASTHMA Aripiprazole 2 mg 01/10/18 11:30 01/17/18 09:12 Abilify PO 2 mg DAILY PARAMJIT Administration Benztropine Mesylate 1 mg 01/10/18 22:00 01/17/18 09:12 Cogentin - PO 1 mg BID PARAMJIT Administration Diphenhydramine HCl 25 mg 01/10/18 22:00 01/16/18 21:11 Benadryl - PO 25 mg HS PRAAMJIT Administration Eucalyptus/Menthol/Phenol/Sorbitol 1 each 01/09/18 21:32 Cepastat Lozenge - MM Q4H PRN SORE THROAT Guaifenesin 10 ml 01/09/18 21:32 Robitussin Dm - PO Q6H PRN COUGH Hydroxyzine Pamoate 50 mg 01/14/18 15:10 01/16/18 15:56 Vistaril - PO 50 mg Q4H PRN Administration ANXIETY Ibuprofen 400 mg 01/09/18 21:32 01/12/18 08:36 Motrin - PO 400 mg Q6H PRN Administration Pain level 4-6 Loperamide HCl 4 mg 01/09/18 21:32 Imodium - PO Q6H PRN DIARRHEA Magnesium Citrate 300 ml 01/09/18 21:32 01/14/18 19:31 Citroma - PO 300 ml Q48H PRN Administration CONSTIPATION Magnesium Hydroxide 30 ml 01/09/18 21:32 01/14/18 13:52 Milk Of Magnesia - PO 30 ml DAILY PRN Administration CONSTIPATION Meclizine HCl 12.5 mg 01/09/18 21:33 Antivert - PO TID PRN dizziness Melatonin 5 mg 01/09/18 22:00 Melatonin PO HS PRN INSOMNIA Montelukast Sodium 10 mg 01/09/18 22:00 01/16/18 21:11 Singulair - PO 10 mg HS PARAMJIT Administration Nicotine Polacrilex 2 mg 01/16/18 10:18 01/16/18 18:06 Nicorette Gum - BUC 2 mg Q2H PRN Administration NICOTINE REPLACEMENT RX Non-Formulary Medication 500 mg 01/12/18 18:00 01/17/18 06:50 Ciprofloxacin [Cipro -] PO 01/19/18 17:59 500 mg BID@0600,1800 PARAMJIT Administration Pantoprazole Sodium 40 mg 01/12/18 10:45 01/17/18 09:12 Protonix - PO 40 mg DAILY PARAMJIT Administration Multivit/Folic Acid/Iron 1 tab 01/10/18 10:00 01/17/18 09:12 Vitamins (Sjr) - PO 1 tab DAILY PARAMJIT Administration Pseudoephedrine/Triprolidine 1 combo 01/09/18 21:32 Actifed - PO TID PRN NASAL CONGESTION Sertraline HCl 75 mg 01/17/18 09:37 Zoloft - PO DAILY PARAMJIT Thiamine HCl 100 mg 01/09/18 22:00 01/16/18 21:11 Vitamin B1 - PO 100 mg HS PARAMJIT Administration Current Side Effect: No Lab tests ordered: No Lab tests reviewed: Yes Provider note:: Chart was revuewed,met with the patient .She reports ongoing depression,mood instability,low energy and negativity.Patient otherwise is following the treatment plan, participating in group settings.Properties of Zoloft has been discussed with the patient including side effects,benefits and dose adjustment.Zoloft 50 mg po daily will be adjusted to 75 mg po daily.Continue Abilify 2 mg po daily,Cogentin 2 mg po bid. Emotional support provided. Total face to face time:: 25 Mental Status Exam - Mental Status Exam Alert and Oriented to: Time, Place, Person Cognitive Function: Grossly Intact Patient Appearance: Unkempt Mood: Sad Affect: Labile Patient Behavior: Cooperative Speech Pattern: Clear Voice Loudness: Normal Thought Process: Goal Oriented Thought Disorder: Not Present Hallucinations: Denies Suicidal Ideation: Denies Homicidal Ideation: Denies Insight/Judgement: Fair Sleep: Fair Appetite: Good Muscle strength/Tone: Normal Gait/Station: Normal Psychiatric Treatment Plan - Problem List (1) Alcohol dependence Current Visit: Yes Qualifiers: Complication of substance-induced condition: uncomplicated (2) GERD (gastroesophageal reflux disease) Current Visit: Yes Qualifiers: Esophagitis presence: esophagitis presence not specified Qualified Code(s) : K21.9 - Gastro-esophageal reflux disease without esophagitis (3) Tourettes syndrome Current Visit: Yes (4) Nicotine dependence Current Visit: Yes Qualifiers: Nicotine product type: cigarettes Substance use status: uncomplicated Qualified Code(s): F17.210 - Nicotine dependence, cigarettes, uncomplicated (5) Bipolar disorder Current Visit: Yes (6) UTI (urinary tract infection) Current Visit: Yes Qualifiers: Urinary tract infection type: site unspecified Hematuria presence: without hematuria Qualified Code(s): N39.0 - Urinary tract infection, site not specified (7) Asthma Current Visit: Yes Qualifiers: Asthma severity: mild Asthma persistence: intermittent Asthma complication type: uncomplicated Qualified Code(s): J45.20 - Mild intermittent asthma, uncomplicated (8) COPD with chronic bronchitis Current Visit: Yes (9) Cocaine dependence, uncomplicated Current Visit: Yes (10) History of 2 sections Current Visit: Yes (11) PTSD (post-traumatic stress disorder) Current Visit: Yes
--- NOTE | 2018-01-17 14:57 | PN ---
[facility] Progress Note Note: PT C/O VAGINAL ITCH AND LUMPY SMELLY DISCHARGE. Vital Signs - 24 hr 01/17/18 01/17/18 01/17/18 00:30 03:30 06:00 Temperature 98.0 F Pulse Rate 71 Respiratory 16 16 16 Rate Blood Pressure 99/64 Laboratory Tests 01/10/18 01/10/18 01/10/18 08:30 09:50 09:50 WBC 4.5 RBC 3.83 Hgb 11.8 Hct 35.7 MCV 93.1 MCH 30.7 MCHC 32.9 RDW 14.2 Plt Count 308 MPV 9.0 Sodium 140 Potassium 4.8 Chloride 108 H Carbon Dioxide 28 Anion Gap 4 L BUN 15 Creatinine 0.6 Creat Clearance w eGFR > 60 Random Glucose 86 Calcium 8.6 Total Bilirubin 0.1 L AST 15 ALT 15 Alkaline Phosphatase 87 Total Protein 6.0 L Albumin 3.0 L Urine Color Straw Urine Appearance Clear Urine pH 5.0 Ur Specific [place] 1.016 Urine Protein Negative Urine Glucose (UA) Negative Urine Ketones Negative Urine Blood Negative Urine Nitrite Negative Urine Bilirubin Negative Urine Urobilinogen Negative Ur Leukocyte Esterase Negative Urine WBC (Auto) Urine RBC (Auto) Ur Epithelial Cells Urine Bacteria Urine Mucus RPR Titer 01/10/18 01/12/18 09:50 00:30 WBC RBC Hgb Hct MCV MCH MCHC RDW Plt Count MPV Sodium Potassium Chloride Carbon Dioxide Anion Gap BUN Creatinine Creat Clearance w eGFR Random Glucose Calcium Total Bilirubin AST ALT Alkaline Phosphatase Total Protein Albumin Urine Color Yellow Urine Appearance Slcloudy Urine pH 6.0 Ur Specific [place] 1.021 Urine Protein Negative Urine Glucose (UA) Negative Urine Ketones Negative Urine Blood Negative Urine Nitrite Negative Urine Bilirubin Negative Urine Urobilinogen Negative Ur Leukocyte Esterase Trace Urine WBC (Auto) 22 Urine RBC (Auto) 1 Ur Epithelial Cells Moderate Urine Bacteria Rare Urine Mucus Few RPR Titer Nonreactive D UA NOTED PLAN:MONISTAT VG 1 HS X 7 DAYS
--- NOTE | 2018-01-17 15:47 | PN ---
[facility] Progress Note Note: Patient decided to sign out after 6 days of treatment.see staff notes for details.She will continue to address her issues on outpatient basis.Scripts for 30 days provided.Stable for discharge today.
[2018-01-17] MEDS ORDERED: MICONAZOLE NITRATE 2% VAGINAL CREAM 45 GM TUBE VG SCH (22:00)
[2018-01-18] MEDS ORDERED: SERTRALINE HCL 50 MG, SERTRALINE HCL 25 MG PO SCH (10:00)
== END 2018-01-17 15:40 | disposition left against medical advice (07) | DRG 770 ==
LOC: YASAS 15:42 → Y3E 22:14 → UNDOADMIN 22:14 → Y3E 01-15 10:56
PROVIDERS: ADMIT Psychiatry & Neurology Psychiatry; ATTEND Psychiatry & Neurology Psychiatry
PROC: HZ42ZZZ Group Counseling for Substance Abuse Treatment, Cognitive-Behavioral (ICD-10-PCS; principal; 2018-01-09)
DX: F10.20 Alcohol dependence, uncomplicated (principal); F14.20 Cocaine dependence, uncomplicated; F17.210 Nicotine dependence, cigarettes, uncomplicated; F31.9 Bipolar disorder, unspecified; F43.10 Post-traumatic stress disorder, unspecified; K21.9 Gastro-esophageal reflux disease without esophagitis; F95.2 Tourette's disorder; B37.49 Other urogenital candidiasis; J45.20 Mild intermittent asthma, uncomplicated; J44.9 Chronic obstructive pulmonary disease, unspecified; B18.2 Chronic viral hepatitis C; Z87.442 Personal history of urinary calculi
CPT/HCPCS: 36415; 80053; 81003; 81015; 85027; 86593; 90732; 93005; 93010; G0009